=== PATIENT | female | born 1960 | race Caucasian/White ===

== ENCOUNTER 2019-12-13 01:22 | Inpatient (IN) | payer MEDICAID ==
[~2019-12-13] VITALS: Ht 177.8 cm; Wt 60.0 kg
[2019-12-13] MEDS ORDERED: ZOLPIDEM TARTRATE 10 MG TABLET PO PRN (03:45)
[2019-12-13] MEDS ORDERED: QUEtiapine FUMARATE 100 MG TABLET PO PRN (03:45)
[2019-12-13 04:30] VITALS: BP 138/94
[2019-12-13 05:01] VITALS: BP 138/94
[2019-12-13 05:30] VITALS: BP 136/92
[2019-12-13] MEDS ORDERED: MAG HYDROX/AL HYDROX/SIMETH ES 30 ML SUSPENSION UDCUP PO PRN (07:30)
[2019-12-13] MEDS ORDERED: CloNIDine HCL 0.1 MG TABLET PO PRN (07:30)
[2019-12-13] MEDS ORDERED: DOCUSATE SODIUM 100 MG CAPSULE PO PRN (07:30)
[2019-12-13] MEDS ORDERED: GuaiFENesin/D-METHORPHAN [SUGAR-FREE] 200-20MG/10 ML SYRUP UDCUP PO PRN (07:30)
[2019-12-13] MEDS ORDERED: ONDANSETRON HCL 4 MG TABLET PO PRN (07:30)
[2019-12-13] MEDS ORDERED: ALBUTEROL SULFATE HFA 90 MCG/PUFF 8 GM INHALER IH PRN (07:30)
[2019-12-13] MEDS ORDERED: LOPERAMIDE HCL 2 MG CAPSULE PO PRN (07:30)
[2019-12-13] MEDS ORDERED: PETROLATUM,WHITE 28 GM JELLY TP PRN (07:30)
[2019-12-13] MEDS ORDERED: MAGNESIUM HYDROXIDE SUSPENSION 30 ML UDCUP PO PRN (07:30)
[2019-12-13 16:01] VITALS: BP 137/72
[2019-12-13 17:27] VITALS: BP 139/84
[2019-12-13 21:44] VITALS: BP 139/75
[2019-12-13] MEDS: NICOTINE 14 MG/24 HOUR PATCH TD PRN (21:44)
[2019-12-13] MEDS: IBUPROFEN 400 MG TABLET PO PRN (21:44)
[2019-12-14] MEDS ORDERED: HALOPERIDOL LACTATE 5 MG/ML VIAL IM ONE
[2019-12-14] MEDS ORDERED: DiphenhydrAMINE HCL 50 MG/ML VIAL IM ONE
[2019-12-14] MEDS ORDERED: LORazepam 2 MG/ML VIAL IM ONE
[2019-12-14 01:08] VITALS: BP 115/69
[2019-12-14 01:27] VITALS: BP 115/84
[2019-12-14] MEDS ORDERED: GuaiFENesin/D-METHORPHAN [SUGAR-FREE] 200-20MG/10 ML SYRUP UDCUP PO PRN (08:15)
[2019-12-14] MEDS ORDERED: DOCUSATE SODIUM 100 MG CAPSULE PO PRN (08:15)
[2019-12-14] MEDS ORDERED: PETROLATUM,WHITE 28 GM JELLY TP PRN (08:15)
[2019-12-14] MEDS ORDERED: ACETAMINOPHEN 325 MG TABLET PO PRN (08:15)
[2019-12-14] MEDS ORDERED: ONDANSETRON HCL 4 MG TABLET PO PRN (08:15)
[2019-12-14] MEDS ORDERED: MAG HYDROX/AL HYDROX/SIMETH ES 30 ML SUSPENSION UDCUP PO PRN (08:15)
[2019-12-14] MEDS ORDERED: ALBUTEROL SULFATE HFA 90 MCG/PUFF 8 GM INHALER IH PRN (08:15)
[2019-12-14] MEDS ORDERED: IBUPROFEN 400 MG TABLET PO PRN (08:15)
[2019-12-14] MEDS ORDERED: LOPERAMIDE HCL 2 MG CAPSULE PO PRN (08:15)
[2019-12-14] MEDS ORDERED: MAGNESIUM HYDROXIDE SUSPENSION 30 ML UDCUP PO PRN (08:15)
[2019-12-14] MEDS ORDERED: NICOTINE 14 MG/24 HOUR PATCH TD PRN (08:15)
[2019-12-14] MEDS ORDERED: CloNIDine HCL 0.1 MG TABLET PO PRN (08:15)
[2019-12-14 16:01] VITALS: BP 105/63
[2019-12-14] MEDS: ACETAMINOPHEN 325 MG TABLET PO PRN (22:10)
[2019-12-15 00:20] VITALS: BP 102/73
[2019-12-15 07:48] LABS: BASOPHILS % (AUTO) 0.9 % (0.0-2.0); EOSINOPHILS % (AUTO) 1.9 % (1.0-6.0); HEMOGLOBIN 15.4 g/dL (12.0-16.0); LYMPHOCYTES # (AUTO) 0.8 K/uL (1.0-4.8); LYMPHOCYTES % (AUTO) 16.4 % (22.0-44.0); MEAN CORPUSCULAR HEMOGLOBIN 38.6 pg (26.0-34.0); MEAN CORPUSCULAR HGB CONC 34.3 G/dL (31.0-37.0); MEAN CORPUSCULAR VOLUME 113 fL (80-100); MONOCYTES # (AUTO) 0.4 K/uL (0.1-1.0); MONOCYTES % (AUTO) 9.5 % (2.0-9.0); NEUTROPHILS # (AUTO) 3.4 K/uL (1.8-7.7); NEUTROPHILS % (AUTO) 71.3 % (40.0-70.0); PLATELET COUNT (AUTO) 208 K/uL (150-450); RED BLOOD CELL COUNT(AUTO) 3.99 MIL/uL (4.00-5.20); RED CELL DISTRIBUTION WIDTH 14.1 % (11.5-14.5)
[2019-12-15 08:02] LABS: HEMOGLOBIN A1C 4.3 % (3.8-5.6)
[2019-12-15 08:10] LABS: ALANINE AMINOTRANSFERASE 69 U/L (12-78); ALBUMIN 3.3 g/dL (3.4-5.0); ALKALINE PHOSPHATASE 88 U/L (46-116); ANION GAP 9 mmol/L (8-16); ASPARTATE AMINOTRANSFERASE 125 U/L (15-37); BILIRUBIN,TOTAL 0.6 mg/dL (0.1-1.0); CARBON DIOXIDE 29 mmol/L (22-29); CHLORIDE 105 mmol/L (98-107); CHOL/HDL RATIO 2.8 (3.9-5.7); CHOLESTEROL 199 mg/dL (131-200); CREATININE 0.61 mg/dL (0.60-1.30); GLOMERULAR FILTR. RATE CALC > 60 mL/min (>60); GLUCOSE,RANDOM 101 mg/dL (70-110); HDL CHOLESTEROL 72 mg/dL (40-60); LDL CHOL (CALC.) 106 mg/dL (0-130); POTASSIUM 4.6 mmol/L (3.5-5.1); SODIUM SERUM 143 mmol/L (136-145); THYROID STIMULATING HORMONE 2.31 uIU/mL (0.36-3.74); TOTAL PROTEIN, SERUM 6.4 g/dL (6.4-8.2); TRIGLYCERIDES 103 mg/dL (15-150); UREA NITROGEN, BLOOD 17 mg/dL (7-18)
[2019-12-15 16:04] VITALS: BP 116/67
[2019-12-15] MEDS: IBUPROFEN 400 MG TABLET PO PRN (19:33)
[2019-12-15] MEDS: QUEtiapine FUMARATE 100 MG TABLET PO SCH (20:52)
[2019-12-16 00:57] VITALS: BP 110/64
[2019-12-16 08:28] VITALS: BP 100/64
[2019-12-16 16:03] VITALS: BP 110/68
[2019-12-16] MEDS: NICOTINE 14 MG/24 HOUR PATCH TD PRN (16:31)
[2019-12-16] MEDS: BACITRACIN 28.4 GM OINTMENT TP SCH (16:31)
[2019-12-16] MEDS: ACETAMINOPHEN 325 MG TABLET PO PRN (18:19)
[2019-12-16] MEDS: QUEtiapine FUMARATE 100 MG TABLET PO SCH (21:00)
[2019-12-17 05:28] VITALS: BP 108/65
[2019-12-17 08:08] VITALS: BP 103/55
[2019-12-17] MEDS: BACITRACIN 28.4 GM OINTMENT TP SCH ×2 (12:45→16:59)
[2019-12-17] MEDS: SULFAMETHOX/TRIMETH DS 800-160 MG/TABLET PO SCH ×2 (12:45→16:59)
[2019-12-17] MEDS: CEPHALEXIN MONOHYDRATE 500 MG CAPSULE PO SCH ×2 (13:11→16:59)
[2019-12-17] MEDS: ACETAMINOPHEN 325 MG TABLET PO PRN (14:44)
[2019-12-17 16:09] VITALS: BP 134/75
[2019-12-17] MEDS: LORazepam 2 MG TABLET PO PRN (17:37)
[2019-12-17] MEDS: QUEtiapine FUMARATE 100 MG TABLET PO SCH (20:06)
[2019-12-18 05:29] VITALS: BP 103/58
[2019-12-18 08:25] VITALS: BP 100/53
[2019-12-18] MEDS: BACITRACIN 28.4 GM OINTMENT TP SCH ×2 (09:07→17:44)
[2019-12-18] MEDS: SULFAMETHOX/TRIMETH DS 800-160 MG/TABLET PO SCH ×2 (09:07→17:45)
[2019-12-18] MEDS: CEPHALEXIN MONOHYDRATE 500 MG CAPSULE PO SCH ×3 (09:07→17:45)
[2019-12-18 14:00] VITALS: BP 110/72
[2019-12-18] MEDS: LORazepam 2 MG TABLET PO PRN (14:04)
[2019-12-18 16:05] VITALS: BP 104/60
[2019-12-18] MEDS: NICOTINE 14 MG/24 HOUR PATCH TD PRN (17:45)
[2019-12-18] MEDS: QUEtiapine FUMARATE 100 MG TABLET PO SCH (21:00)
[2019-12-19 00:46] VITALS: BP 100/69
[2019-12-19 08:27] VITALS: BP 99/59
[2019-12-19] MEDS: BACITRACIN 28.4 GM OINTMENT TP SCH (08:29)
[2019-12-19] MEDS: CEPHALEXIN MONOHYDRATE 500 MG CAPSULE PO SCH ×2 (08:29→13:12)
[2019-12-19] MEDS: SULFAMETHOX/TRIMETH DS 800-160 MG/TABLET PO SCH (08:29)
[2019-12-19 09:48] VITALS: BP 104/68
[2019-12-19] MEDS: ACETAMINOPHEN 325 MG TABLET PO PRN (09:48)
[2019-12-19] MEDS ORDERED: CEPH500 PO (12:52)
[2019-12-19] MEDS ORDERED: SULF1TAB42 PO (12:52)
== END 2019-12-19 15:20 | disposition home or self-care (01) | DRG 751 ==
LOC: B3A 04:04
PROVIDERS: ADMIT Psychiatry & Neurology Child & Adolescent Psychiatry; ATTEND Psychiatry & Neurology Child & Adolescent Psychiatry
DX: F29 Unspecified psychosis not due to a substance or known physiological condition (principal); G43.909 Migraine, unspecified, not intractable, without status migrainosus; F10.10 Alcohol abuse, uncomplicated; F15.90 Other stimulant use, unspecified, uncomplicated; Y90.9 Presence of alcohol in blood, level not specified; F41.9 Anxiety disorder, unspecified; R74.0 Nonspecific elevation of levels of transaminase and lactic acid dehydrogenase [LDH]
CPT/HCPCS: 83036; 84443; J1200; J1630; J2060